=== PATIENT | male | born 1945 | race Caucasian/White ===

== ENCOUNTER → 2016-07-17 | Outpatient (CLI) | payer OTHER, MEDICARE ==
[~2016-07-17] MED LIST: LEVO125T4 PO; MULT-506 PO; OXYC5TAB PO; SIMV20TA2 PO
[2016-07-17 12:24] LABS: BASO % 0.1 %; BASO ABS # 0.01 K/uL (0-0.2); COMPLETE YES; EOS % 0.9 %; HEMATOCRIT 45.4 % (42-52); IG% 0.3 %; LYMPH % 19.7 %; LYMPH ABS # 1.36 K/uL (1.2-3.4); MEAN CELL VOLUME 88.7 fL (80-100); MEAN CORPUSCULAR HEMOGLOBIN 31.3 pg (25-34); MEAN CORPUSCULAR HGB CONC 35.2 g/dl (32-36); MEAN PLATELET VOLUME 9.9 fL (7.4-10.4); MONO % 6.9 %; NEUT % 72.1 %; PLATELET COUNT 238 K/uL (130-400); RED BLOOD COUNT 5.12 M/uL (4.7-6.1); WHITE BLOOD COUNT 6.91 K/uL (4.8-10.8)
[2016-07-17 12:47] LABS: ALKALINE PHOSPHATASE 97 U/L (45-117); ALT/SGPT 38 U/L (12-78); AST/SGOT 20 U/L (15-37); BLOOD UREA NITROGEN 14 mg/dl (7-18); BUN/CREATININE RATIO 11.6 (10-20); CALCIUM 8.8 mg/dl (8.5-10.1); CARBON DIOXIDE 26 mmol/L (21-32); CHLORIDE 104 mmol/L (98-107); CHOLESTEROL 181 mg/dl (0-200); GLUCOSE 95 mg/dl (70-99); POTASSIUM 3.9 mmol/L (3.5-5.1); SODIUM 140 mmol/L (136-145)
[2016-07-17 12:48] LABS: ALB/GLOB RATIO 1.3 (0.9-2); CHOLESTEROL/HDL RATIO 2.8; HDL CHOLESTEROL 65 mg/dl; LDL CHOLESTEROL CALCULATED 95 mg/dl; THYROID STIMULATING HORMONE 0.638 uIu/ml (0.300-4.500); TRIGLYCERIDES 103 mg/dl (0-150); VERY LOW DENSITY LIPOPROT CALC 21 mg/dl
== END | disposition home or self-care (01) ==
LOC: C.LABBFT 09:47
PROVIDERS: ATTEND Internal Medicine
DX: E03.9 Hypothyroidism, unspecified (principal); E78.00 Pure hypercholesterolemia, unspecified

== ENCOUNTER → 2017-03-07 | Day surgery (SDC) | payer OTHER, MEDICARE ==
[2017-02-26 10:42] VITALS: Ht 179.1 cm; Wt 99.1 kg
[~2017-03-07] VITALS: Ht 179.1 cm; Wt 99.1 kg
[~2017-03-07] MED LIST changes: +LIDOCAINE HCL 2% 2 ML VIAL (20MG/ML) ONE; -OXYC5TAB PO; +PROPOFOL IV EMULSION 10 MG/ML 20 ML VIAL IV ONE; +SODIUM CHLORIDE 0.9% 500ML 500 ML IV ONE
[2017-03-07 09:19] VITALS: TEMP 36.5
--- NOTE | 2017-03-07 09:31 | Endo History and Physical ---
History & Physical Date of Service: Mar 07, 2017. Chief Complaint: f/u periananl abscess Referring Physician: Dr. Chase Newell History of Present Illness 71 yo CM who presents for colonoscopy secondary to perianal abscess. Past Medical History High Cholesterol, Thyroid Disease Past Surgical History Hx Cardiac Surgery: No Hx Internal Defibrillator: No Hx Pacemaker: No Hx Abdominal Surgery: Yes (HERNIA REPAIR) Hx of Implantable Prosthesis: No Hx Post-Op Nausea and Vomiting: No Hx Cancer Surgery: No Hx Thoracic Surgery: No Hx Orthopedic: Yes (LT HAND FINGER SURGERY) Hx Urinary Tract Surgery: No Family History None Social History Smoking Status: Former Smoker Hx Substance Use: No Hx Alcohol Use: No Allergies Coded Allergies: No Known Allergies (Verified , 03/07/17) Current Medications Reported Home Medications Medications Dose Route/Sig Max Daily Dose Days Date Category Multivitamin (Multivitamins) Tab 1 Tab PO QPM 02/26/17 Reported Levothyroxine Sodium 125 Mcg Tab 125 Mcg PO QAM 09/19/14 Reported Zocor (Simvastatin) 20 Mg Tab 20 Mg PO HS 09/19/14 Reported Vital Signs Weight (Kilograms): 99.09 Height (Feet): 5 Height (Inches): 10.5 Date Time Temp Pulse Resp B/P (MAP) Pulse Ox O2 Delivery O2 Flow Rate FiO2 03/07/17 09:19 36.5 77 20 156/81 (106) 97 Room Air Physical Exam General Appearance: WD/WN, no apparent distress Respiratory/Chest: Auscultation: breath sounds normal Cardiovascular: Heart Auscultation: RRR Abdomen: Bowel Sounds: normal Inspection & Palpation: soft, non-distended, no tenderness, guarding & rebound Assessment and Plan Assessment: 71 yo CM who presents for colonoscopy secondary to perianal abscess. Plan: Proceed with colonoscopy.
--- NOTE | 2017-03-07 09:58 | Discharge Instructions ---
Endoscopy Patient Instructions Date / Procedure(s) Performed Mar 07, 2017. Colonoscopy Allergy Information Coded Allergies: No Known Allergies (Verified , 03/07/17) Discharge Date / Findings Mar 07, 2017. Colon polyps Diverticulosis Internal hemorrhoids Medication Instructions Stopped Medication(s): stopped MVI Sunday OK to resume all medications today as prescribed Reported Home Medications Medications Dose Route/Sig Max Daily Dose Days Date Category Multivitamin (Multivitamins) Tab 1 Tab PO QPM 02/26/17 Reported Levothyroxine Sodium 125 Mcg Tab 125 Mcg PO QAM 09/19/14 Reported Zocor (Simvastatin) 20 Mg Tab 20 Mg PO HS 09/19/14 Reported Provider Instructions Activity Restrictions - No exercising or heavy lifting for 24 hours. - Do not drink alcohol the day of the procedure. - Do not drive a car or operate machinery until the day after the procedure. - Do not make any important decisions or sign important papers in 24 hours after the procedure. Following Day: - Return to full activity which may include returning to work/school. Diet Start your diet with liquids and light foods (jello, soup, juice, toast). Then eat your usual diet if not nauseated. Treatment For Common After Affects For mild abdominal pain, bloating, or excessive gas: - Rest - Eat lightly - Lie on right side Follow-Up Information Follow-up with Dr. Chase Newell as scheduled Anesthesia Information What You Should Know You have had a procedure that required some medicine to reduce anxiety and discomfort. This treatment is called moderate sedation. After receiving the treatment, you may be sleepy, but you will be able to breathe on your own. The effects of the treatment may last for several hours. Follow these instructions along with Activity/Diet recommendations noted above: * Do NOT do anything where dizziness or clumsiness would be dangerous. * Rest quietly at home today, then you can be up and about tomorrow. * Have a responsible person stay with you the rest of today. * You may have had an I.V. today. If so, you may take the dressing off later today. Recommendations Call your doctor if: * Trouble breathing * Continuous vomiting for more than 24 hours * Temperature above 101 degrees * Severe abdominal pain or bloating * Pain not relieved by pain medicine ordered * There is increased drainage or redness from any incision * A large amount of rectal bleeding greater than 2-3 tablespoons. (If you had a polyp/s removed or have hemorrhoids, a small amount of blood - from the rectum is to be expected.) * You have any unanswered questions or concerns. IN THE EVENT OF A SERIOUS EMERGENCY, GO TO THE NEAREST EMERGENCY ROOM Your discharge instructions were prepared by provider To Feliciano. Patient Instructions Signature Page Ray Batista Patient (or Guardian) Signature/Date: I have read and understand the instructions given to me by my caregivers. Caregiver/RN/Doctor Signature/Date: The above-named patient and/or guardian has received patient instructions on this date. + Original Patient Signature Page (only) stays with chart. Please make copy for patient.
--- NOTE | 2017-03-07 10:04 | GI REPORT ---
Procedure Date: 03/07/2017 9:40 AM Procedure: Colonoscopy Indications: Followup of Perianal abscess Medicines: Monitored Anesthesia Care Complications: No immediate complications. Estimated Blood Loss: Estimated blood loss: none. Procedure: Pre-Anesthesia Assessment: - Prior to the procedure, a History and Physical was performed, and patient medications and allergies were reviewed. The patient's tolerance of previous anesthesia was also reviewed. The risks and benefits of the procedure and the sedation options and risks were discussed with the patient. All questions were answered, and informed consent was obtained. Prior Anticoagulants: The patient has taken no previous anticoagulant or antiplatelet agents. ASA Grade Assessment: II - A patient with mild systemic disease. After reviewing the risks and benefits, the patient was deemed in satisfactory condition to undergo the procedure. After I obtained informed consent, the scope was passed under direct vision. Throughout the procedure, the patient's blood pressure, pulse, and oxygen saturations were monitored continuously. The scope was introduced through the anus and advanced to the cecum, identified by appendiceal orifice and ileocecal valve. The colonoscopy was performed without difficulty. The patient tolerated the procedure well. The quality of the bowel preparation was good. The ileocecal valve, appendiceal orifice, and rectum were photographed. Findings: Three sessile polyps were found in the sigmoid colon and in the ascending colon. The polyps were 5 to 7 mm in size. These polyps were removed with a hot snare. Resection and retrieval were complete. Scattered small-mouthed diverticula were found in the entire colon. Non-bleeding internal hemorrhoids were found during retroflexion. The hemorrhoids were small. Impression: - Three 5 to 7 mm polyps in the sigmoid colon and in the ascending colon, removed with a hot snare. Resected and retrieved. - Diverticulosis in the entire examined colon. - Non-bleeding internal hemorrhoids. Recommendation: - Resume previous diet. - Continue present medications. - Await pathology results. - Repeat colonoscopy for surveillance based on pathology results. - Return to primary care physician as previously scheduled. To Feliciano DO 03/07/2017 10:03:12 AM This report has been signed electronically. Note Initiated On: 03/07/2017 9:40 AM I attest to the content of the Intraoperative Record and orders documented therein, exceptions below
--- NOTE | 2017-03-07 10:27 | Anesthesiology Progress Note ---
Anesthesia Post Op Note Date & Time Mar 07, 2017 at 10:27 Vital Signs Pain Intensity: 0 Vital Signs Past 12 Hours Date Time Temp Pulse Resp B/P (MAP) Pulse Ox O2 Delivery O2 Flow Rate FiO2 03/07/17 10:15 72 18 144/86 (105) 96 Room Air 03/07/17 10:00 70 18 116/77 (90) 97 Room Air 03/07/17 09:19 36.5 77 20 156/81 (106) 97 Room Air Notes Mental Status: alert / awake / arousable, participated in evaluation Pt Amnestic to Procedure: Yes Nausea / Vomiting: adequately controlled Pain: adequately controlled Airway Patency, RR, SpO2: stable & adequate BP & HR: stable & adequate Hydration State: stable & adequate Anesthetic Complications: no major complications apparent
[2017-03-07 10:30] VITALS: BP 135/85; PULSE 66; O2SAT 98
== END | disposition home or self-care (01) ==
LOC: C.GI 08:54
PROVIDERS: ATTEND Internal Medicine
DX: K61.0 Anal abscess (principal); D12.2 Benign neoplasm of ascending colon; D12.5 Benign neoplasm of sigmoid colon; E05.00 Thyrotoxicosis with diffuse goiter without thyrotoxic crisis or storm; K64.8 Other hemorrhoids; K57.30 Diverticulosis of large intestine without perforation or abscess without bleeding; Z87.891 Personal history of nicotine dependence

== ENCOUNTER → 2017-04-23 | Outpatient (CLI) | payer OTHER, MEDICARE ==
[~2017-04-23] MED LIST changes: -LIDOCAINE HCL 2% 2 ML VIAL (20MG/ML) ONE; -PROPOFOL IV EMULSION 10 MG/ML 20 ML VIAL IV ONE; -SODIUM CHLORIDE 0.9% 500ML 500 ML IV ONE
[2017-04-23 12:43] LABS: % FREE PSA 26.2 %; FREE PSA 1.3 ng/ml; PROSTATE SPECIFIC ANTIGEN 4.97 ng/ml (0.000-4.000)
== END | disposition home or self-care (01) ==
LOC: C.LABBFT 09:33
PROVIDERS: ATTEND Urology
DX: R97.20 Elevated prostate specific antigen [PSA] (principal)

== ENCOUNTER → 2017-06-15 | Outpatient (CLI) | payer OTHER, MEDICARE ==
[~2017-06-15] MED LIST changes: -LEVO125T4 PO; +LEVO125T5 PO; +OPTIRAY 320 IV PRN
--- NOTE | 2017-06-15 14:15 | DIAGNOSTIC IMAGING REPORT ---
ABD/PELVIS IV AND ORAL CONT CT DOSE: 833.56 mGy.cm HISTORY: Flank pain R10.30 Groin painZ87.19 History of right inguinal hernia TECHNIQUE: Multiaxial CT images of the abdomen and pelvis were performed following the use of intravenous and oral contrast. A dose lowering technique was utilized adhering to the principles of ALARA. COMPARISON STUDY: 06/13/2016 FINDINGS: Minimal basilar interstitial change considered nonspecific. Multiple small hepatic cysts. Gallbladder is negative for distention. Pancreas is unremarkable. 3 mm nonobstructing mid pole right renal calcification. No evidence for hydronephrosis or obstructing urinary tract calculus. The bowel pattern is nonobstructive. Small fat-containing left inguinal hernia. No evidence of bowel containment or respiration. Moderate prostate enlargement. IMPRESSION: 1. Fat-containing left inguinal hernia considered nonobstructive. 2. Prostate enlargement. 3. Nonobstructive bowel pattern. 4. Several small hepatic cysts. The above report was generated using voice recognition software. It may contain grammatical, syntax or spelling errors. Electronically signed by: Chato Avitia M.D. 06/15/2017 2:14 PM Dictated Date/Time: 06/15/2017 2:11 PM
== END | disposition home or self-care (01) ==
LOC: C.CTS 12:59
PROVIDERS: ATTEND Surgery
DX: R10.30 Lower abdominal pain, unspecified (principal); Z87.19 Personal history of other diseases of the digestive system; K40.90 Unilateral inguinal hernia, without obstruction or gangrene, not specified as recurrent; N40.0 Benign prostatic hyperplasia without lower urinary tract symptoms; K76.89 Other specified diseases of liver

== ENCOUNTER 2017-06-25 10:27 | Day surgery (SDC) | payer OTHER, MEDICARE ==
[2017-06-21 10:10] VITALS: BMI 31.0
--- NOTE | 2017-06-21 10:43 | PAT Medication Instructions ---
Service Date Jun 21, 2017. Current Home Medication List Sedqych-Qtbeiivufquqa-Udnrrnyk (Excedrin Migraine), 1 TAB PO PRN Levothyroxine Sodium (Levothyroxine Sodium), 125 MCG PO QAM Multivitamin (Multivitamin), 1 TAB PO QPM Simvastatin (Zocor), 20 MG PO HS [Nasal [place]], 2 SPRAYS INTNAS PRN Medication Instructions For Your Scheduled Surgery - Hold the following medications the morning of surgery: Vcerynn-Nrthnmfzmgtob-Vwwiqfvq (Excedrin Migraine), 1 TAB PO PRN - Take the following medications the morning of surgery with a sip of water: Levothyroxine Sodium (Levothyroxine Sodium), 125 MCG PO QAM [Nasal [place]], 2 SPRAYS INTNAS PRN - Take the following medications as scheduled the night before surgery: Simvastatin (Zocor), 20 MG PO HS Multivitamin (Multivitamin), 1 TAB PO QPM [Nasal [place]], 2 SPRAYS INTNAS PRN (if needed) If you have any questions please call us at [phone] or [phone] or [phone]
--- NOTE | 2017-06-21 11:30 | DIAGNOSTIC IMAGING REPORT ---
CHEST 2 VIEWS ROUTINE CLINICAL HISTORY: PAT preoperative evaluation COMPARISON STUDY: No previous studies for comparison. FINDINGS: The bones soft tissues and hemidiaphragms are normal. The cardiomediastinal silhouette is normal. The lungs are clear. The pulmonary vasculature is normal. IMPRESSION: Negative chest. The above report was generated using voice recognition software. It may contain grammatical, syntax or spelling errors. Electronically signed by: Chato Avitia M.D. 06/21/2017 11:29 AM Dictated Date/Time: 06/21/2017 11:29 AM
[2017-06-21 12:27] LABS: BASO % 0.3 %; BASO ABS # 0.02 K/uL (0-0.2); COMPLETE YES; EOS % 1.6 %; HEMATOCRIT 45.5 % (42-52); IG% 0.2 %; LYMPH % 25.4 %; LYMPH ABS # 1.59 K/uL (1.2-3.4); MEAN CELL VOLUME 90.3 fL (80-100); MEAN CORPUSCULAR HEMOGLOBIN 31.5 pg (25-34); MEAN CORPUSCULAR HGB CONC 34.9 g/dl (32-36); MEAN PLATELET VOLUME 10.1 fL (7.4-10.4); NEUT % 62.5 %; PLATELET COUNT 227 K/uL (130-400); RED BLOOD COUNT 5.04 M/uL (4.7-6.1); WHITE BLOOD COUNT 6.27 K/uL (4.8-10.8)
[2017-06-21 12:35] LABS: BUN/CREATININE RATIO 14.3 (10-20); CALCIUM 8.8 mg/dl (8.5-10.1); CREATININE 1.08 mg/dl (0.60-1.40); POTASSIUM 4.4 mmol/L (3.5-5.1)
[~2017-06-25] VITALS: Ht 177.8 cm; Wt 99.4 kg
[~2017-06-25 10:27] MED LIST changes: +ASPI-390 PO; +ATROPINE SULFATE 0.1 MG/ML 5ML SYR IV PRN; +CEFAZOLIN 2000 MG/60 ML D5W 60 ML IV SCH; +CEFAZOLIN 2000MG IV PUSH 10 ML IV SCH; +EpHEDrine SULFATE INJ 50 MG/ML AMP IV PRN; +FENTANYL CITRATE INJ 50 MCG/1 ML 2 ML VIAL IV PRN; +LACTATED RINGER'S 1000ML 1,000 ML IV SCH; +NASAL SPRAY INTNAS; +ONDANSETRON INJ 2 MG/ML 2 ML VIAL IV PRN; -OPTIRAY 320 IV PRN
[2017-06-25] MEDS ORDERED: ROCURONIUM BROMIDE 10 MG/ML 5 ML VIAL IV ONE (11:04)
[2017-06-25] MEDS ORDERED: LIDOCAINE HCL 2% 2 ML VIAL (20MG/ML) ONE (11:04)
[2017-06-25] MEDS ORDERED: PROPOFOL IV EMULSION 10 MG/ML 20 ML VIAL IV ONE (11:04)
[2017-06-25] MEDS ORDERED: FENTANYL CITRATE INJ 50 MCG/1 ML 2 ML VIAL ONE ×4 (11:05→14:23)
[2017-06-25] MEDS ORDERED: MIDAZOLAM HCL 1 MG/ML 2ML VIAL ONE (11:05)
[2017-06-25 11:06] VITALS: BP 177/81; PULSE 75; TEMP 36.6; O2SAT 97; Ht 177.8 cm; Wt 99.4 kg
[2017-06-25] MEDS ORDERED: GLYCOPYRROLATE INJ 0.2 MG/ML VIAL ONE ×2 (11:09→11:29)
[2017-06-25] MEDS ORDERED: NEOSTIGMINE METHYLSULFATE 5 MG/5 ML SYR ONE (11:09)
[2017-06-25] MEDS ORDERED: KETOROLAC TROMETHAMINE 30 MG/ML VIAL ONE (11:09)
[2017-06-25] MEDS ORDERED: BUPIVACAINE 0.5 % 5 MG/1 ML MPF 30ML VIAL ONE (11:58)
--- NOTE | 2017-06-25 11:58 | History & Physical Bridge Note ---
H&P Re-Evaluation Bridge Note: I have examined the patient, reviewed the History & Physical and in the interval since the performance of the History & Physical I have noted the following changes of clinical significance: No changes noted
[2017-06-25] MEDS ORDERED: EpHEDrine SULFATE 50MG/5ML SYR ONE (12:42)
[2017-06-25] MEDS ORDERED: LABETALOL HCL IV 5 MG/ML 20ML IV ONE (13:08)
--- NOTE | 2017-06-25 14:01 | [facility] Post Operative Brief Note ---
Immediate Operative Summary Operative Date Jun 25, 2017. Pre-Operative Diagnosis Left and Right Inguinal Hernias Post-Operative Diagnosis Left and Right Inguinal Hernias Procedure(s) Performed Laparoscopic Left and Right Inguinal Hernia Repair with Mesh Surgeon Dr. Yadiel Randall [employer] Dean Surgeon(s) Fabián Mcmullen PA-C Estimated Blood Loss 2CC Findings left indirect inguinal hernia with cord lipoma; right with apparent recurrent direct inguinal hernia. Specimens A.) Right Lipoma of the Cord Drains None Anesthesia GETA Complication(s) None Disposition Recovery Room / PACU
--- NOTE | 2017-06-25 14:07 | [facility] Operative Report ---
Operative Report Operative Date Jun 25, 2017. Pre-Operative Diagnosis Left and Right Inguinal Hernias Post-Operative Diagnosis Left indirect inguinal hernia; Right recurrent direct inguinal hernia Procedure(s) Performed Laparoscopic bilateral (TEP) inguinal hernia repair with mesh (right recurrent) Surgeon Dr. Yadiel Randall Coloring Checker Surgeon(s) Fabián Mcmullen PA-C Estimated Blood Loss 2CC Findings left indirect inguinal hernia with cord lipoma; right with apparent recurrent direct inguinal hernia. Specimens A.) Right Lipoma of the Cord Drains None Anesthesia GETA Complication(s) None Disposition Recovery Room / PACU Indications 71-year-old male with right groin pain found to have left inguinal hernia, concern for recurrence on the right but CT imaging negative. Plan for laparoscopic left inguinal hernia repair, possible right. The risks of the procedure were discussed, all questions were answered, and the patient agreed to proceed with surgery as planned. Description of Procedure The patient was properly identified, consented, and taken to the operating room where he was placed in the supine position. General endotracheal anesthesia was induced. SCDs and a safety belt were placed. A tipton catheter was placed. Preoperative antibiotics were administered. The patient's groins and abdomen were prepped and draped in the standard sterile fashion. Surgical timeout was performed and all parties were in agreement that this was the correct patient and procedure to be performed and we continued as planned. A transverse infraumbilical incision was made to the right of midline with electrocautery and deepened down to the fascia with blunt dissection. A transverse incision was made in the anterior rectus sheath on the right. The rectus muscle was pulled laterally exposing the posterior rectus sheath. A large Marie was used to bluntly dissect the preperitoneal space down to the pubic symphysis. This was then replaced with a laparoscopic preperitoneal dissection balloon, which was inflated under direct visualization and held in place for approximately 30 seconds. This was then removed and the preperitoneal space was insufflated with carbon dioxide which the patient tolerated without incident. Two 5 mm ports were then placed in the midline. Dissection started on the left, beginning laterally at the anterior superior iliac spine. Sudheer's ligament was then dissected medially. The cord structures were circumferentially dissected. A small indirect inguinal hernia along with a moderate size cord lipoma were noted. They were dissected away from the cord structures. The contralateral side was then dissected in a similar manner. There was significant scarring from his prior open inguinal hernia repair. Tears in the peritoneum were repaired with a 5 mm clip product builder. The peritoneum was scarred right to the entrance of the internal ring was dissected away, but it was unclear whether this represented a recurrence. There was a small direct defect, and some fat was reduced. Progrip mesh was placed bilaterally and covered the direct, indirect, and femoral spaces. The mesh was held in place, the ports were removed, and the space was allowed to collapse. The anterior rectus sheath fascia was closed with 0 Vicryl suture. The skin of all port sites were closed with 4-0 Monocryl subcuticular suture, and Dermabond was placed over the incisions. The patient was extubated in the operating room and taken to the PACU for recovery without apparent incident. Any air in the scrotum was reduced, and the testicles were confirmed to be in the scrotum. There is no evidence of bladder air within the Tipton catheter collection bag, and the catheter was removed. All sponge, instrument, and needle counts were correct at the conclusion of the procedure. The patient tolerated the procedure well. I attest to the content of the Intraoperative Record and any orders documented therein. Any exceptions are noted below.
[2017-06-25] MEDS ORDERED: OXYC-57 PO (14:11)
--- NOTE | 2017-06-25 14:13 | Discharge Instructions ---
Discharge Instructions Date of Service Jun 25, 2017. Visit Reason for Visit: Left Inguinal Hernia Discharge Discharge Diagnosis / Problem: laparoscopic repair right & left hernias Discharge Goals Goal(s): Decrease discomfort Activity Recommendations Activity Limitations: as noted below Lifting Limitations: no more than 10 pounds Shower/Bathe: no limitations (ok to shower) Driving or Machine Use: 1 week Anesthesia . Post Anesthesia Instructions: If you have had General Anesthesia or IV Sedation: * Do not drive today. * Resume driving when surgeon permits. * Do not make important decisions or sign legal documents today. * Call surgeon for: 1. Temperature elevations greater than 101 degrees F. 2. Uncontrollable pain. 3. Excessive bleeding. 4. Persistent nausea and vomiting. 5. Medication intolerance (nausea, vomiting or rash). * For nausea and vomiting use only clear liquids such as: tea, soda, bouillon until nausea subsides, then gradually increase diet as tolerated. * If you have any concerns or questions, call your surgeon's office. If physician is unavailable and it is an emergency, call 911 or go to the nearest emergency room. . Instructions / Follow-Up Instructions / Follow-Up Dr. Randall in 1-2 weeks as planned, call [phone] for any questions or if you do not already have an appt Diet Recommendations Recommended Home Diet: no limitations Procedures Procedures Performed: Laparoscopic Left and Right Inguinal Hernia Repair with Mesh Pending Studies Studies pending at discharge: no Medical Emergencies . Who to Call and When: Medical Emergencies: If at any time you feel your situation is an emergency, please call 911 immediately. . Non-Emergent Contact Non-Emergency issues call your: Surgeon Call Non-Emergent contact if: you have a fever, temperature is above 101.5, your pain is not controlled, you have any medication questions . . "Provider Documentation" section prepared by Ovi Mcmuleln. .
[2017-06-25] MEDS ORDERED: LACTATED RINGER'S 1000ML 1,000 ML IV SCH (14:14)
[2017-06-25] MEDS ORDERED: MoRPHine SULFATE 4 MG/ML 1 ML CARP\\VIAL IV PRN (14:15)
[2017-06-25] MEDS ORDERED: ONDANSETRON INJ 2 MG/ML 2 ML VIAL IV PRN (14:15)
[2017-06-25] MEDS ORDERED: OXYCODONE/ACETAMINOPHEN 5-325 TAB PO PRN (14:15)
--- NOTE | 2017-06-25 14:42 | Anesthesiology Progress Note ---
Anesthesia Post Op Note Date & Time Jun 25, 2017 at 14:41 Vital Signs Pain Intensity: 6 Vital Signs Past 12 Hours Date Time Temp Pulse Resp B/P (MAP) Pulse Ox O2 Delivery O2 Flow Rate FiO2 06/25/17 14:30 73 16 123/79 97 Oxymask 10 06/25/17 14:20 66 16 135/82 97 Oxymask 10 06/25/17 14:10 36.9 74 16 143/94 96 Oxymask 10 06/25/17 11:06 36.6 75 16 177/81 (113) 97 Room Air Notes Mental Status: alert / awake / arousable, participated in evaluation Pt Amnestic to Procedure: Yes Nausea / Vomiting: adequately controlled Pain: adequately controlled Airway Patency, RR, SpO2: stable & adequate BP & HR: stable & adequate Hydration State: stable & adequate Anesthetic Complications: no major complications apparent
[2017-06-25 15:07] VITALS: BP 119/69; PULSE 85; TEMP 36.7; O2SAT 94
[2017-06-25 15:48] VITALS: BP 131/74; PULSE 93; TEMP 36.7; O2SAT 92
== END 2017-06-25 16:08 | disposition home or self-care (01) ==
LOC: C.ACU 10:27
PROVIDERS: ATTEND Surgery
DX: K40.91 Unilateral inguinal hernia, without obstruction or gangrene, recurrent (principal); K40.90 Unilateral inguinal hernia, without obstruction or gangrene, not specified as recurrent; N40.1 Benign prostatic hyperplasia with lower urinary tract symptoms; N13.8 Other obstructive and reflux uropathy; E78.00 Pure hypercholesterolemia, unspecified; E03.9 Hypothyroidism, unspecified; Z87.891 Personal history of nicotine dependence; Z79.899 Other long term (current) drug therapy; E66.9 Obesity, unspecified; Z68.31 Body mass index [BMI] 31.0-31.9, adult

== ENCOUNTER → 2017-07-19 | Outpatient (CLI) | payer OTHER, MEDICARE ==
[~2017-07-19] MED LIST changes: -ASPI-390 PO; -ATROPINE SULFATE 0.1 MG/ML 5ML SYR IV PRN; -CEFAZOLIN 2000 MG/60 ML D5W 60 ML IV SCH; -CEFAZOLIN 2000MG IV PUSH 10 ML IV SCH; -EpHEDrine SULFATE INJ 50 MG/ML AMP IV PRN; -FENTANYL CITRATE INJ 50 MCG/1 ML 2 ML VIAL IV PRN; -LACTATED RINGER'S 1000ML 1,000 ML IV SCH; -ONDANSETRON INJ 2 MG/ML 2 ML VIAL IV PRN; +OXYC-57 PO
[2017-07-19 12:40] LABS: BASO % 0.3 %; BASO ABS # 0.02 K/uL (0-0.2); EOS % 3.3 %; EOS ABS # 0.25 K/uL (0-0.5); IG# 0.03 K/uL (0.00-0.02); LYMPH % 20.2 %; LYMPH ABS # 1.54 K/uL (1.2-3.4); MEAN CELL VOLUME 90.9 fL (80-100); MEAN CORPUSCULAR HEMOGLOBIN 31.6 pg (25-34); MEAN CORPUSCULAR HGB CONC 34.8 g/dl (32-36); MEAN PLATELET VOLUME 9.7 fL (7.4-10.4); MONO % 7.6 %; MONO ABS # 0.58 K/uL (0.11-0.59); NEUT % 68.2 %; PLATELET COUNT 317 K/uL (130-400); RED CELL DISTRIBUTION WIDTH CV 12.8 % (11.5-14.5); WHITE BLOOD COUNT 7.62 K/uL (4.8-10.8)
[2017-07-19 13:10] LABS: ALBUMIN 3.7 gm/dl (3.4-5.0); ALT/SGPT 34 U/L (12-78); BLOOD UREA NITROGEN 13 mg/dl (7-18); CALCIUM 8.9 mg/dl (8.5-10.1); CARBON DIOXIDE 29 mmol/L (21-32); CHOLESTEROL 165 mg/dl (0-200); CREATININE 1.04 mg/dl (0.60-1.40); GLUCOSE 69 mg/dl (70-99); SODIUM 139 mmol/L (136-145)
[2017-07-19 13:19] LABS: ALKALINE PHOSPHATASE 104 U/L (45-117); AST/SGOT 18 U/L (15-37); LDL CHOLESTEROL CALCULATED 86 mg/dl; TOTAL PROTEIN 7.2 gm/dl (6.4-8.2)
== END | disposition home or self-care (01) ==
LOC: C.LABBFT 09:15
PROVIDERS: ATTEND Internal Medicine
DX: E78.00 Pure hypercholesterolemia, unspecified (principal); E03.9 Hypothyroidism, unspecified

== ENCOUNTER 2019-08-01 07:27 | Inpatient (IN) ==
[2019-08-01 08:11] LABS: Basophils # (auto) 0.01 K/uL (0-0.2); Basophils % (auto) 0.1 %; Eosinophils # (auto) 0.04 K/uL (0-0.5); Eosinophils % (auto) 0.5 %; Hematocrit (blood only) 45.5 % (42-52); Hemoglobin 16.1 g/dL (14.0-18.0); Immature Granulocytes # (auto) 0.02 K/uL (0.00-0.02); Immature Granulocytes % (auto) 0.2 %; Lymphocytes # (auto) 1.13 K/uL (1.2-3.4); Lymphocytes % (auto) 13.4 %; Mean Corpuscular Hemoglobin 31.9 pg (25-34); Mean Corpuscular Hgb Conc 35.4 g/dL (32-36); Mean Corpuscular Volume 90.3 fL (80-100); Mean Platelet Volume 9.5 fL (7.4-10.4); Monocytes # (auto) 0.91 K/uL (0.11-0.59); Monocytes % (auto) 10.8 %; Neutrophils # (auto) 6.33 K/uL (1.4-6.5); Platelet Count 230 K/uL (130-400); RDW Coefficient of Variation 12.8 % (11.5-14.5); RDW Standard Deviation 42.1 fL (36.4-46.3); Red Blood Count 5.04 M/uL (4.7-6.1); White Blood Count 8.44 K/uL (4.8-10.8)
[2019-08-01 08:27] LABS: Albumin Level 3.8 gm/dl (3.4-5.0); BUN Creatinine Ratio 7.9 (10-20); Calcium 9.1 mg/dl (8.5-10.1); Creatinine Clr Calc Pharmacy 39.8 ml/min; Est GFR (African American) 40.1; Est GFR (Non-African American) 34.6; Potassium 4.4 mmol/L (3.5-5.1)
[2019-08-01 08:30] LABS: Bilirubin,Total 0.5 mg/dl (0.2-1); Globulin 3.6 gm/dl (2.5-4.0); Total Protein 7.4 gm/dl (6.4-8.2)
--- NOTE | 2019-08-01 08:34 | Emergency Department Note ---
Entered by Wilber Hudson acting as a scribe for History of Present Illness General Chief complaint: Flank Pain Stated complaint: PAIN ON THE RIGHT SIDE Time Seen by Provider: 08/01/19 07:34 Source: patient Limitations: no limitations History of Present Illness Onset (ago): day(s) 4 Location: abdomen Pain Consistency: + constant Maximum Pain Intensity: 8 Quality: + constant Associated symptoms: + other (loose stools); no nausea/vomiting The patient is a 73 year old male who presents to the Emergency Room with complaints of constant and dull right-sided flank pain starting 4 days ago. The patient states he was prescribed 5 mg oxycodone. He states he had an anal fistulotomy 8 days ago and notes this is his second time getting it within the past 3 months. He states he started taking milk of magnesia 3 days ago and states he has been having loose stools since. The patient denies having nausea or vomiting. Home Medications Home Medications Medication Instructions Recorded Confirmed Type simvastatin 20 mg tablet 20 mg PO QPM #90 tab 06/12/19 08/01/19 Rx levothyroxine 125 mcg PO QAM 08/01/19 08/01/19 History oxycodone 5 mg PO Q4H PRN 08/01/19 08/01/19 History Allergies Allergy/AdvReac Type Severity Reaction Status Date / Time No Known Allergies Allergy Verified 08/01/19 08:48 Past Med/Surg History Medical History Abscess of anal and rectal regions Hyperlipemia Thumb injury Surgical History History of hernia surgery History of hernia surgery Family History Father Stroke Hypertension Social History Preferred Language: Angolan Communication Ability: Effective Model Technician Required: No Beliefs That Will Affect Care: Church Church Beliefs: Jain marital status: Current Living Situation: Spouse current occupational status: retired Other Information That Helps Us Care for You: No Feels Safe at Home: No Is there a partner from a previous relationship who is making you feel unsafe now?: No Any Concerns about Your Family Situation: No Would You Like to Speak to Someone About Your Situation: No Safety Concerns: Feels Safe At This Time Smoking Status: Former smoker Do You Dip or Chew Tobacco: No ; Smoking End Date: 20 years ago. ; Second Hand Exposure: No ; Tobacco Cessation Education Requested by Patient: No Hx Alcohol Use: Yes Alcohol type: beer and wine Hx Substance Use: No Review of Systems See HPI for pertinent positives & negatives. and A total of 10 systems reviewed and were otherwise negative Physical Exam Vital Signs Vital Signs - 24 hr 08/01/19 07:29 08/01/19 08:08 08/01/19 08:09 Temperature 36.5 C Temperature Source Oral Pulse Rate 85 Pulse Rate [Apical] 74 Pulse Rhythm [Apical] Regular Pulse Strength [Apical] Normal Respiratory Rate 16 16 Respiratory Effort / Characteristics Non-Labored Spontaneous Non-Labored Spontaneous Respiratory Depth Normal Normal Respiratory Pattern Regular Regular Blood Pressure 164/84 H Blood Pressure [Left Arm] 160/92 H Blood Pressure Mean 110 Blood Pressure Mean [Left Arm] 114 Blood Pressure Position Sitting Blood Pressure Position [Left Arm] Sitting Pulse Oximetry 96 95 95 Oxygen Delivery Method Room Air Room Air Room Air Sepsis Recent Fever Within 48 Hours No Sepsis New/Unexplained Change in Mental Status No Sepsis Action Taken by Nursing No Action Required 08/01/19 08:42 08/01/19 09:40 Temperature Temperature Source Pulse Rate Pulse Rate [Apical] 73 71 Pulse Rhythm [Apical] Regular Regular Pulse Strength [Apical] Normal Normal Respiratory Rate 18 18 Respiratory Effort / Characteristics Non-Labored Non-Labored Spontaneous Respiratory Depth Normal Normal Respiratory Pattern Blood Pressure Blood Pressure [Left Arm] 183/115 H 169/90 H Blood Pressure Mean Blood Pressure Mean [Left Arm] 137 116 Blood Pressure Position Blood Pressure Position [Left Arm] Sitting Sitting Pulse Oximetry 96 97 Oxygen Delivery Method Room Air Room Air Sepsis Recent Fever Within 48 Hours Sepsis New/Unexplained Change in Mental Status Sepsis Action Taken by Nursing GENERAL: Patient is awake alert in no acute distress patient is resting comfortably and showing no signs of anxiety EYES: The conjunctivae are clear. The pupils are round and reactive. EARS, NOSE, MOUTH AND THROAT: The nose is without any evidence of any deformity. Mucous membranes are moist. Tongue is midline. NECK: The neck is nontender and supple. RESPIRATORY: Normal respiratory effort is noted there is no evidence of wheezing rhonchi or rales CARDIOVASCULAR: Regular rate and rhythm noted there no murmurs rubs or gallops normal S1 normal S2. GASTROINTESTINAL: The abdomen is mildly distended. There is right-sided tenderness to palpation but no guarding or rigidity. Tenderness appears to be mostly in the mid right abdomen. MUSCULOSKELETAL/EXTREMITIES: There is no evidence of gross deformity full range of motion is noted in the hips and shoulders. SKIN: There is no obvious evidence of any rash. Trace pedal edema was noted bilaterally. NEUROLOGIC: Patient is awake alert and oriented x3. Course Course 0801: The patient was evaluated in room B2, and a complete history and physical examination were performed along with my resident - Dr. Moran. 0953: I spoke with Addie Zaman - Nurse Practitioner Urology. She recommends admitting the patient to medicine. 0958: I discussed the patient's case with Dr. Perrin - [facility]ist. She will evaluate the patient for further management. Administered Medications Sodium Chloride (Nss 1000ml) 1,000 mls @ 100 mls/hr IV .Q10H SJ Stop: 08/31/19 12:06 Last Admin: 08/01/19 13:16 Dose: 100 mls/hr Documented by: [id number] Polyethylene Glycol (Miralax Powder Packet) 17 gm PO BID SJ Stop: 08/31/19 12:06 Last Admin: 08/01/19 13:25 Dose: 17 gm Documented by: [id number] Discontinued Medications Fentanyl Citrate (Fentanyl Citrate) 75 mcg IV NOW STA Stop: 08/01/19 08:53 Last Admin: 08/01/19 09:08 Dose: 75 mcg Documented by: [id number] Ceftriaxone Sodium (Rocephin) 2,000 mg in 70 mls @ 140 mls/hr IV NOW STA Stop: 08/01/19 09:22 Last Infusion: 08/01/19 10:06 Dose: 0 mls/hr Documented by: [id number] Admin: 08/01/19 09:08 Dose: 140 mls/hr Documented by: [id number] Sodium Chloride (Nss 1000ml) 1,000 mls @ 999 mls/hr IV .Q1H1M SJ Stop: 08/01/19 10:15 Last Infusion: 08/01/19 11:18 Dose: 0 mls/hr Documented by: [id number] Admin: 08/01/19 09:30 Dose: 999 mls/hr Documented by: [id number] Ioversol (Optiray 320 100ml) 93 ml IV ONCE PRN PRN Reason: Interaction Checking Stop: 08/05/19 08:41 Last Admin: 08/01/19 08:43 Dose: 93 ml Documented by: [id number] Ondansetron HCl (Zofran Odt) 4 mg PO NOW STA Stop: 08/01/19 08:54 Last Admin: 08/01/19 09:08 Dose: 4 mg Documented by: [id number] Medical Decision Making Differential Diagnosis Differential diagnoses includes but is not limited to gastritis, peptic ulcer disease, GERD, gallbladder disease, pancreatitis, small bowel obstruction, acute coronary syndrome, pericarditis, ischemic bowel, irritable bowel disease, irritable bowel syndrome, appendicitis, diverticulitis, malignancy, hernia, urinary tract infection, torsion, perforation, trauma, infectious. Medical Records Attestation: I reviewed the patient's medical records. Home Medications Current Medication List: was personally reviewed by me Laboratory Data Attestation: I reviewed the patient's lab results. Result diagrams: 08/01/19 08:00 08/01/19 08:00 Lab Results 08/01/19 08/01/19 08/01/19 Range/Units 08:00 08:00 08:00 WBC 8.44 (4.8-10.8) K/uL RBC 5.04 (4.7-6.1) M/uL Hgb 16.1 (14.0-18.0) g/dL Hct 45.5 (42-52) % MCV 90.3 (80-100) fL MCH 31.9 (25-34) pg MCHC 35.4 (32-36) g/dL RDW Std Deviation 42.1 (36.4-46.3) fL RDW Coeff of [place] 12.8 (11.5-14.5) % Plt Count 230 (130-400) K/uL MPV 9.5 (7.4-10.4) fL Immature Gran % (Auto) 0.2 % Neut % (Auto) 75.0 % Lymph % (Auto) 13.4 % Snyder % (Auto) 10.8 % Eos % (Auto) 0.5 % Baso % (Auto) 0.1 % Immature Gran # (Auto) 0.02 (0.00-0.02) K/uL Neut # (Auto) 6.33 (1.4-6.5) K/uL Lymph # (Auto) 1.13 L (1.2-3.4) K/uL Snyder # (Auto) 0.91 H (0.11-0.59) K/uL Eos # (Auto) 0.04 (0-0.5) K/uL Baso # (Auto) 0.01 (0-0.2) K/uL Sodium 139 (136-145) mmol/L Potassium 4.4 (3.5-5.1) mmol/L Chloride 105 (98-107) mmol/L Carbon Dioxide 28 (21-32) mmol/L Anion Gap 6.0 (3-11) BUN 15 (7-18) mg/dl Creatinine 1.86 H (0.6-1.4) mg/dl Est Cr Clr Drug Dosing 39.8 ml/min Est GFR ( Amer) 40.1 Est GFR (Non-Af Amer) 34.6 BUN/Creatinine Ratio 7.9 L (10-20) Glucose 109 H (70-99) mg/dl Estimat Average Glucose 105 mg/dl Hemoglobin A1c 5.3 (4.5-5.6) % Calcium 9.1 (8.5-10.1) mg/dl Total Bilirubin 0.5 (0.2-1) mg/dl AST 11 L (15-37) U/L ALT 22 (12-78) U/L Alkaline Phosphatase 94 (45-117) U/L NT-Pro-B Natriuret Pep (0-900) pg/ml Total Protein 7.4 (6.4-8.2) gm/dl Albumin 3.8 (3.4-5.0) gm/dl Globulin 3.6 (2.5-4.0) gm/dl Albumin/Globulin Ratio 1.0 (0.9-2) Lipase 110 (73-393) U/L Prostate Specific Ag (0-4) ng/ml Urine Color Urine Appearance (Clear) Urine pH (4.5-7.5) Ur Specific [place] (1.000-1.030) Urine Protein (Negative) Urine Glucose (UA) (Negative) Urine Ketones (Negative) Urine Blood (Negative) Urine Nitrite (Negative) Urine Bilirubin (Negative) Urine Urobilinogen (Negative) Ur Leukocyte Esterase (Negative) Urine WBC (Auto) (0-5) /hpf Urine RBC (Auto) (0-4) /hpf U Hyaline Cast (Auto) (0-5) /lpf U Epithel Cells (Auto) (0-5) /lpf Urine Bacteria (Auto) (Negative) 08/01/19 08/01/19 Range/Units 08:00 09:00 WBC (4.8-10.8) K/uL RBC (4.7-6.1) M/uL Hgb (14.0-18.0) g/dL Hct (42-52) % MCV (80-100) fL MCH (25-34) pg MCHC (32-36) g/dL RDW Std Deviation (36.4-46.3) fL RDW Coeff of [place] (11.5-14.5) % Plt Count (130-400) K/uL MPV (7.4-10.4) fL Immature Gran % (Auto) % Neut % (Auto) % Lymph % (Auto) % Snyder % (Auto) % Eos % (Auto) % Baso % (Auto) % Immature Gran # (Auto) (0.00-0.02) K/uL Neut # (Auto) (1.4-6.5) K/uL Lymph # (Auto) (1.2-3.4) K/uL Snyder # (Auto) (0.11-0.59) K/uL Eos # (Auto) (0-0.5) K/uL Baso # (Auto) (0-0.2) K/uL Sodium (136-145) mmol/L Potassium (3.5-5.1) mmol/L Chloride (98-107) mmol/L Carbon Dioxide (21-32) mmol/L Anion Gap (3-11) BUN (7-18) mg/dl Creatinine (0.6-1.4) mg/dl Est Cr Clr Drug Dosing ml/min Est GFR ( Amer) Est GFR (Non-Af Amer) BUN/Creatinine Ratio (10-20) Glucose (70-99) mg/dl Estimat Average Glucose mg/dl Hemoglobin A1c (4.5-5.6) % Calcium (8.5-10.1) mg/dl Total Bilirubin (0.2-1) mg/dl AST (15-37) U/L ALT (12-78) U/L Alkaline Phosphatase (45-117) U/L NT-Pro-B Natriuret Pep 89 (0-900) pg/ml Total Protein (6.4-8.2) gm/dl Albumin (3.4-5.0) gm/dl Globulin (2.5-4.0) gm/dl Albumin/Globulin Ratio (0.9-2) Lipase (73-393) U/L Prostate Specific Ag 8.570 H (0-4) ng/ml Urine Color Yellow Urine Appearance Cloudy A (Clear) Urine pH 7.5 (4.5-7.5) Ur Specific [place] 1.017 (1.000-1.030) Urine Protein Negative (Negative) Urine Glucose (UA) Negative (Negative) Urine Ketones Negative (Negative) Urine Blood 1+ H (Negative) Urine Nitrite Negative (Negative) Urine Bilirubin Negative (Negative) Urine Urobilinogen Negative (Negative) Ur Leukocyte Esterase Negative (Negative) Urine WBC (Auto) 0 (0-5) /hpf Urine RBC (Auto) 0-4 (0-4) /hpf U Hyaline Cast (Auto) 0 (0-5) /lpf U Epithel Cells (Auto) 0-5 (0-5) /lpf Urine Bacteria (Auto) Negative (Negative) Imaging Data Radiologist's Impression: Radiology results as stated below per my review and the radiologist's interpretation: CT abd pelvis IV con only CT DOSE: 653.99 mGy.cm HISTORY: Pain pain abdominal pain after surgery TECHNIQUE: Multiaxial CT images of the abdomen and pelvis were performed following the use of intravenous contrast. A dose lowering technique was utilized adhering to the principles of ALARA. COMPARISON STUDY: 03/05/2019 FINDINGS: Lung bases are clear. Several small hepatic cysts. Gallbladder is negative for distention. Left kidney is normal. Right kidney shows moderate hydronephrosis. There is a 4 mm obstructing calculus right ureteral pelvic junction. Moderate right perinephric infiltrative change. Findings of mild right periureteral infiltrative change. Nonobstructive bowel pattern. Postoperative changes right inguinal region unaltered from the prior study. The rectal findings diffusely described are improved. No evidence for drainable abscess or collection. IMPRESSION: 1. 4 mm obstructing calculus right ureteropelvic junction. 2. Moderate right renal perinephric infiltrative change and hydronephrosis. 3. Study is otherwise unremarkable with improved prior rectal and low pelvic change described previously. ACT 112: Negative or not required by law. The above report was generated using voice recognition software. It may contain grammatical, syntax or spelling errors. Electronically signed by: Chato Avitia M.D. 08/01/2019 9:15 AM Blood Pressure Blood Pressure Findings: Elevated blood pressure Blood Pressure Disposition: Referred to patients primary care provider MDM Narrative The patient is a 73-year-old male who presented to the emergency department for an evaluation of right side pain. The patient had right upper quadrant abdominal pain but also some right flank pain. The patient recently had surgery on his rectal region. He was unsure if this was the cause of his symptoms but he has no worsening discharge or pain in this area. I discussed the patient's laboratory and radiographic studies with him. He was treated with IV fluids and pain medication. He was also started on IV antibiotics. Ultimately the patient was found to have a very proximal ureteral calculus with some degree of hyd ronephrosis as well as possible forniceal rupture. We discussed this case with the on-call urologist as well as [facility] hospitalist group. They have agreed to evaluate the patient in the emergency department for further management disposition. The patient was reevaluated multiple times. His creatinine was elevated compared to baseline. This is likely secondary to the obstruction. Impression & Plan Renal colic on right side, Hydronephrosis, Right flank pain, Acute kidney injury Discharge Plan Visit Data *Final* Discharge Date/Time: 08/01/19 11:47 Chief Complaint: Flank Pain Stated Complaint: PAIN ON THE RIGHT SIDE ED Provider: Jas Malagon ED Midlevel Provider: Jacob Moran Discharge Problem: Renal colic on right side, Hydronephrosis, Right flank pain, Acute kidney injury Patient Disposition: Admitted As Inpatient Discharge Instructions Interventions: ED Discharge Assessment Last Done: 08/01/19 11:47 Discharge Problem: Hydronephrosis Qualifiers: Hydronephrosis type: unspecified Qualified Code(s): N13.30 - Unspecified hydronephrosis The scribe's documentation has been prepared under my direction and personally reviewed by me in its entirety. I confirm that the note above accurately reflects all work, treatment, procedures, and medical decision making performed by me.
[2019-08-01] MEDS ORDERED: IOVERSOL 100ml IV PRN (08:42)
[2019-08-01] MEDS ORDERED: fentaNYL citrate 100 MCG/2 ML VIAL IV STA (08:52)
[2019-08-01] MEDS ORDERED: cefTRIAXone SODIUM 2,000 MG/70 ML BAG IV STA (08:53)
[2019-08-01] MEDS ORDERED: ONDANSETRON 4 MG OD TAB PO STA (08:53)
--- NOTE | 2019-08-01 09:01 | Emergency Department Note ---
ED Visit Note I saw this patient in conjunction with Dr. Malagon, and agree with the impression and assessment as outlined in his documentation. For all pertinent details and findings regarding this patient's care please see his documentation.. Resident Activity Tracking Resident Involvement: Resident Care Provided Care Provided: Adult ED : Hydronephrosis Qualifiers: Hydronephrosis type: unspecified Qualified Code(s): N13.30 - Unspecified hydronephrosis
[2019-08-01 09:14] LABS: Appearance Urine Cloudy (Clear); Bacteria Urine Automated Negative (Negative); Bilirubin Urine Negative (Negative); Blood Urine 1+ (Negative); Cast Urine Automated 0 /lpf (0-5); Color Urine Yellow; Epithelial Cell Urine Auto 0-5 /lpf (0-5); Glucose Urine UA Negative (Negative); Ketones Urine Negative (Negative); Leukocyte Esterase Urine Negative (Negative); Nitrite Urine Negative (Negative); Protein Urine Negative (Negative); RBC Urine Automated 0-4 /hpf (0-4); Specific Gravity Urine 1.017 (1.000-1.030); Urobilinogen Urine Negative (Negative); WBC Urine Automated 0 /hpf (0-5); pH Urine 7.5 (4.5-7.5)
[2019-08-01] MEDS ORDERED: SODIUM CHLORIDE 0.9% 1000ML 1,000 ML IV SCH (09:15)
--- NOTE | 2019-08-01 09:17 | CT Scan Report ---
CT abd pelvis IV con only CT DOSE: 653.99 mGy.cm HISTORY: Pain pain abdominal pain after surgery TECHNIQUE: Multiaxial CT images of the abdomen and pelvis were performed following the use of intrave nous contrast. A dose lowering technique was utilized adhering to the principles of ALARA. COMPARISON STUDY: 03/05/2019 FINDINGS: Lung bases are clear. Several small hepatic cysts. Gallbladder is negative for distention. Left kidney is normal. Right kidney shows moderate hydronephrosis. There is a 4 mm obstructing calculus right ureteral pelvi c junction. Moderate right perinephric infiltrative change. Findings of mild right periureteral infiltrative change. Nonobstructive bowel pattern. Postoperative changes right inguinal region unaltered from the prior st udy. The rectal findings diffusely described are improved. No evidence for drainable abscess or collection . IMPRESSION: 1. 4 mm obstructing calculus right ureteropelvic junction. 2. Moderate right renal perinephric infiltrative change and hydronephrosis. 3. Study is otherwise unremarkable with improved prior rectal and low pelvic change described previou sly. ACT 112: Negative or not required by law. The above report was generated using voice recognition software. It may contain grammatical, syntax or spelling errors. Electronically signed by: Chato Avitia M.D. 08/01/2019 9:15 AM
--- NOTE | 2019-08-01 10:59 | History & Physical Report ---
Date of Service August 01, 2019 Assessment & Plan (1) Renal colic on right side: Admit to PCU on telemetry Vital signs every 4 hours Strain every urine Continue IV fluid hydration Placed consult for urology Pain management Antinausea management DVT prophylaxis SCDs and teds Full code Present on Admission?: Yes (2) Hydronephrosis: As the above (3) Right flank pain: As the above Present on Admission?: Yes (4) Hyperlipidemia: Lipid panel pending Continue simvastatin 20 mg p.o. every afternoon Present on Admission?: Yes (5) Constipation, acute: Patient states that he is constipated and did not have bowel movement since operation. Recommended to start MiraLAX twice a day as tolerated. Present on Admission?: Yes (6) Elevated PSA: Would consider discussing issue with urology tomorrow. Present on Admission?: Yes History of Present Illness Chief Complaint: Right flank pain Primary Care Provider: Chase Newell MD The patient is a 73 years old male with past medical history of hyperlipidemia and hypothyroidism who presents to the emergency room with a complaint of constant and dull right-sided flank pain that started 4 days ago. Patient states that he was prescribed 5 mg of oxycodone for the pain pain did not go away. Patient said that he had an anal fistulotomy 8 days ago. Patient reports that he also suffers from constipation since anal fistulotomy. Eyes fever, chills, chest pain, shortness of breath, frequency, urgency. Observe reviewed: WBCs 8.44 hemoglobin 16.1 hematocrit 45.5,sodium 139, p otassium 4.4 chloride 105, BUN 15, creatinine 1.86, GFR 34.6, hemoglobin A1c 5.3, prostate-specific antigen 8.57. Urine is cloudy with 1+ blood, leukocyte Estrace negative and urine nitrate negative. Bacteria negative. CT abdomen and pelvis shows 4 mm obstructing calculus right ureteropelvic junction. Moderate right renal perinephritic infiltrate changes and hydronephrosis. Decision was made to admit patient for urolithiasis and acute kidney injury and further management Allergies Allergy/AdvReac Type Severity Reaction Status Date / Time No Known Allergies Allergy Verified 08/01/19 08:48 Home Medications Home Medications Medication Instructions Recorded Confirmed Type simvastatin 20 mg tablet 20 mg PO QPM #90 tab 06/12/19 08/01/19 Rx levothyroxine 125 mcg PO QAM 08/01/19 08/01/19 History oxycodone 5 mg PO Q4H PRN 08/01/19 08/01/19 History Past Med/Surg History Medical History Abscess of anal and rectal regions Hyperlipemia Thumb injury Surgical History History of hernia surgery History of hernia surgery Family History Father Stroke Hypertension Social History Preferred Language: Turkish Communication Ability: Effective Construction Rep Required: No Beliefs That Will Affect Care: Jain Jain Beliefs: Muslim marital status: Current Living Situation: Spouse current occupational status: retired Other Information That Helps Us Care for You: No Feels Safe at Home: No Is there a partner from a previous relationship who is making you feel unsafe now?: No Any Concerns about Your Family Situation: No Would You Like to Speak to Someone About Your Situation: No Safety Concerns: Feels Safe At This Time Smoking Status: Former smoker Do You Dip or Chew Tobacco: No ; Smoking End Date: 20 years ago. ; Second Hand Exposure: No ; Tobacco Cessation Education Requested by Patient: No Hx Alcohol Use: Yes Alcohol type: beer and wine Hx Substance Use: No Review of Systems Review of Systems: All systems reviewed & are unremarkable except as noted in HPI & below Physical Exam Constitutional: WD/WN, vitals as above well developed and + obese Eyes: PERRL, conjunctivae normal, anicteric sclerae ENMT: external ear and nose normal, oropharynx normal Neck: trachea midline, no thyromegaly Respiratory: normal respiratory effort, lungs clear to auscultation Cardiovascular: RRR, no murmur, no edema Gastrointestinal (Abdomen): normal bowel sounds, soft, nontender, no hepatosplenomegaly right flank pain on percussion Musculoskeletal: no cyanosis or clubbing, extremities motor strength 5/5 Skin: no rashes, warm and dry Neurologic: patellar DTR's 2+ bilat, sensation intact Psychiatric: A+Ox3, euthymic affect Genitourinary: + CVA tenderness (on the right) Lymphatic: no cervical or axillary lymphadenopathy Results & Data Vital Signs (Past 12 Hours) Vital Signs Temp Pulse Pulse Resp BP BP Pulse Ox 08/01/19 09:40 71 18 169/90 H 97 08/01/19 08:42 73 18 183/115 H 96 08/01/19 08:09 95 08/01/19 08:08 74 16 160/92 H 95 08/01/19 07:29 36.5 C 85 16 164/84 H 96 Code Status & VTE Plan Code Status Full code VTE Prophylaxis Plan VTE Prophylaxis will be ordered: Yes PG Care Time/CCT Total # of Minutes Spent Total Time Spent with Patient: Total time spent is greater than 50% in coordination of care (as documented) at patient's floor/unit and/or counseling patient: Coding Level of Care Code 76611 Initial Inpt Care Lvl 3 Diagnoses Renal colic on right side N23 Hydronephrosis N13.30 Hydronephrosis type: unspecified Right flank pain R10.9 Hyperlipidemia E78.5 Constipation, acute K59.00 Elevated PSA R97.20 (1) Hydronephrosis Hydronephrosis type: unspecified Qualified Code(s): N13.30 - Unspecified hydronephrosis
[2019-08-01 11:36] LABS: Prostate Specific Antigen 8.57 ng/ml (0-4)
[2019-08-01 11:51] LABS: Estimated Average Glucose 105 mg/dl; Hemoglobin A1C 5.3 % (4.5-5.6)
[2019-08-01] MEDS ORDERED: MoRPHine SULFATE 2 MG/ML CARP IV PRN (12:07)
[2019-08-01] MEDS ORDERED: MAGNESIUM HYDROXIDE SUSP 30 ML UDC PO PRN (12:07)
[2019-08-01] MEDS ORDERED: ALUMINUM/MAGNESIUM SUSP 30 ML UDC PO PRN (12:07)
[2019-08-01] MEDS ORDERED: ONDANSETRON INJ 2 MG/ML 2 ML VIAL IV PRN (12:07)
[2019-08-01] MEDS ORDERED: PROMETHAZINE HCL 25 MG in SODIUM CHLORIDE 0.9% 50 ML IV PRN (12:07)
[2019-08-01] MEDS ORDERED: ACETAMINOPHEN 325 MG TAB PO PRN (12:07)
[2019-08-01] MEDS ORDERED: OXYCODONE HCL IR 5 MG TAB (IMMEDIATE RELEASE) PO PRN (12:57)
[2019-08-01] MEDS: SODIUM CHLORIDE 0.9% 1000ML 1,000 ML IV SCH ×2 (13:16→22:57)
[2019-08-01] MEDS: POLYETHYLENE (MIRALAX) 17 GM PACK PO SCH ×2 (13:25→21:08)
[2019-08-01] MEDS ORDERED: SIMVASTATIN 20 MG TAB PO SCH (21:00)
[2019-08-02] MEDS ORDERED: LEVOTHYROXINE SODIUM 125 MCG TABLET PO SCH (06:30)
--- NOTE | 2019-08-02 06:37 | Electrocardiogram Report ---
Test Reason : Blood Pressure : / mmHG Vent. Rate : 083 BPM Atrial Rate : 083 BPM P-R Int : 222 ms QRS Dur : 094 ms QT Int : 380 ms P-R-T Axes : 062 068 054 degrees QTc Int : 446 ms Sinus rhythm with 1st degree A-V block Otherwise normal ECG When compared with ECG of 21-JUN-2017 10:57, No significant change was found Confirmed by Jeff Gay ([id number]) on 08/02/2019 6:37:21 AM Referred By: REFERRED SELF Confirmed By:Jeff Gay
[2019-08-02 08:28] LABS: Basophils # (auto) 0.01 K/uL (0-0.2); Basophils % (auto) 0.2 %; Eosinophils # (auto) 0.08 K/uL (0-0.5); Eosinophils % (auto) 1.2 %; Hematocrit (blood only) 43.3 % (42-52); Hemoglobin 14.8 g/dL (14.0-18.0); Immature Granulocytes # (auto) 0.01 K/uL (0.00-0.02); Immature Granulocytes % (auto) 0.2 %; Lymphocytes # (auto) 1.15 K/uL (1.2-3.4); Lymphocytes % (auto) 17.8 %; Mean Corpuscular Hemoglobin 31.4 pg (25-34); Mean Corpuscular Hgb Conc 34.2 g/dL (32-36); Mean Corpuscular Volume 91.7 fL (80-100); Mean Platelet Volume 9.9 fL (7.4-10.4); Monocytes # (auto) 0.81 K/uL (0.11-0.59); Monocytes % (auto) 12.5 %; Neutrophils # (auto) 4.41 K/uL (1.4-6.5); Neutrophils % (auto) 68.1 %; Platelet Count 197 K/uL (130-400); RDW Coefficient of Variation 12.9 % (11.5-14.5); RDW Standard Deviation 43.4 fL (36.4-46.3); Red Blood Count 4.72 M/uL (4.7-6.1); White Blood Count 6.47 K/uL (4.8-10.8)
[2019-08-02] MEDS: POLYETHYLENE (MIRALAX) 17 GM PACK PO SCH (08:40)
[2019-08-02] MEDS: SODIUM CHLORIDE 0.9% 1000ML 1,000 ML IV SCH (08:41)
--- NOTE | 2019-08-02 09:05 | XRay Report ---
[facility] CLINICAL HISTORY: Nephrolithiasis. Right ureteral stone. FINDINGS: 2 AP supine abdominal radiographs are correlated with abdominal CT dated 08/01/2019. There i s a nonobstructed abdominal bowel gas pattern. Surgical clips project over the right lower quadrant. A 5 mm calculus is again seen projecting over the right proximal ureter just below the transverse pro cess of L3. No additional calcifications are seen projecting over either kidney. Numerous phleboliths are seen in the pelvis. The skeletal structures are osteopenic and appear intact. Lumbosacral spondy losis is noted. IMPRESSION: A 5 mm calculus is again seen projecting over the right proximal ureter. Electronically signed by: Farzad Peña M.D. 08/02/2019 9:03 AM
[2019-08-02 09:06] LABS: Albumin Level 3.2 gm/dl (3.4-5.0); BUN Creatinine Ratio 9.5 (10-20); Calcium 8.6 mg/dl (8.5-10.1); Creatinine Clr Calc Pharmacy 56.4 ml/min; Est GFR (African American) 61.3; Est GFR (Non-African American) 52.9; Potassium 4.4 mmol/L (3.5-5.1)
[2019-08-02 09:12] LABS: Bilirubin,Total 0.4 mg/dl (0.2-1); Globulin 3.3 gm/dl (2.5-4.0); Total Protein 6.5 gm/dl (6.4-8.2)
--- NOTE | 2019-08-02 10:40 | Urology Consultation ---
Date of Consultation August 02, 2019 Assessment & Plan (1) Acute kidney injury: (2) Renal colic on right side: A/P 73 yo male with radio-opaque proximal 5 mm right ureteral stone. Options reviewed with patient and . These include a trial of passage with medications, endoscopic management acutely with stent or as an outpatient with ureteroscopy or ESWL. After discussion of risks and benefits, and seen his improved Cr with fluids and improved symptoms, he would prefer to try to proceed with right ESWL semi-electively at the next available date. Worrisome signs and symptoms including recurrent colic or symptoms or worsening renal function are reviewed which might cause a need for readmission and stenting. Will provide a PO diet and initiate arrangements for outpatient ESWL. Patient should be stable for DC home this PM if his symptoms remain controlled and he tolerates his diet well. Thank you for allowing us to participate in this patient's acute care. Please recall our service as needed with any questions or concerns. (3) Right flank pain: (4) Hydronephrosis: (5) Elevated PSA: (6) BPH w urinary obs/LUTS: History of Present Illness Reason for Consultation: R 5 mm proximal ureteral stone, colic, renal insufficiency. Attending Physician: Manjinder Workman MD History of Present Illness 73 yo male, known to our service, followed by Dr. Yee for an elevated PSA, last seen in Jun 2019, admitted acutely yesterday for several days of worsening flank pain and nausea. Patient has recently undergone a repeat anal fistulotomy at [facility] and also notes a history of a past hernia repair, originally suspected a relation of his flank pain to his postop course. present in room, inpatient and outpatient notes and imaging reviewed. CT done on admission shows a 5 mm R proximal ureteral stone, visible on KUB done this AM. Images are personally reviewed. Cr at presentation was 1.8, down to 1.3 today with IVF, still above baseline of 0.8. Urology consultation requested to assist with his care. He reports his pain is much improved since admission, fewer GI complaints as well. Allergies Allergy/AdvReac Type Severity Reaction Status Date / Time No Known Allergies Allergy Verified 08/01/19 08:48 Home Medications Home Medications Medication Instructions Recorded Confirmed Type simvastatin 20 mg tablet 20 mg PO QPM #90 tab 06/12/19 08/01/19 Rx levothyroxine 125 mcg PO QAM 08/01/19 08/01/19 History oxycodone 5 mg PO Q4H PRN 08/01/19 08/01/19 History Patient History Medical History (Updated 08/02/19 @ 11:25 by Ras Workman MD) Abscess of anal and rectal regions Hyperlipemia Right ureteral stone Thumb injury Surgical History History of hernia surgery History of hernia surgery Family History Father Stroke Hypertension Social History Preferred Language: Belgian Communication Ability: Effective Home Designer Required: No Beliefs That Will Affect Care: Congregational Congregational Beliefs: Zoroastrianism marital status: Current Living Situation: Spouse current occupational status: retired Other Information That Helps Us Care for You: No Feels Safe at Home: No Is there a partner from a previous relationship who is making you feel unsafe now?: No Any Concerns about Your Family Situation: No Would You Like to Speak to Someone About Your Situation: No Safety Concerns: Feels Safe At This Time Smoking Status: Former smoker Do You Dip or Chew Tobacco: No ; Smoking End Date: 20 years ago. ; Second Hand Exposure: No ; Tobacco Cessation Education Requested by Patient: No Hx Alcohol Use: Yes Alcohol type: beer and wine Hx Substance Use: No Review of Systems Constitutional: no fever and no chills Eyes: no diplopia Ear, Nose, Mouth, Throat: no ear trauma Respiratory: no hemoptysis Cardiovascular: no chest pain Gastrointestinal: + abdominal pain (Improved); no vomiting Genitourinary: no hematuria Musculoskeletal: + back pain Integumentary: no acne and no boil Neurologic: no paralysis Psychiatric: no hopelessness Hematologic / Lymphatic: no lymphadenopathy Allergy / Immunological: no tongue swelling Physical Exam Constitutional: well developed and well nourished; no acute distress Eyes: eyes not dysmorphic ENMT: Ears: no external ear abnormality Neck: trachea midline; no anterior neck swelling Respiratory: no respiratory distress and does not use accessory muscles Cardiovascular: Vessels: radial pulses present Gastrointestinal (Abdomen): Inspection/Auscultation: abdomen not distended Percussion/Palpation: abdomen soft Musculoskeletal: Head/Neck/Chest: normocephalic and neck supple Skin: normal turgor Neurologic: awake; not obtunded Psychiatric: Orientation: oriented x 3 Lymphatic: no lymphadenopathy Results & Data Vital Signs (Past 12 Hours) Vital Signs Temp Pulse Resp BP Pulse Ox 08/02/19 07:46 36.8 C 72 18 128/76 94 08/02/19 04:45 36.6 C 67 20 133/81 96 Laboratory Results Laboratory Results - last 48 hr 08/01/19 08/01/19 08/01/19 08:00 08:00 08:00 WBC 8.44 RBC 5.04 Hgb 16.1 Hct 45.5 MCV 90.3 MCH 31.9 MCHC 35.4 RDW Std Deviation 42.1 RDW Coeff of [place] 12.8 Plt Count 230 MPV 9.5 Immature Gran % (Auto) 0.2 Neut % (Auto) 75.0 Lymph % (Auto) 13.4 [place] % (Auto) 10.8 Eos % (Auto) 0.5 Baso % (Auto) 0.1 Immature Gran # (Auto) 0.02 Neut # (Auto) 6.33 Lymph # (Auto) 1.13 L [place] # (Auto) 0.91 H Eos # (Auto) 0.04 Baso # (Auto) 0.01 Sodium 139 Potassium 4.4 Chloride 105 Carbon Dioxide 28 Anion Gap 6.0 BUN 15 Creatinine 1.86 H Est Cr Clr Drug Dosing 39.8 Est GFR ( Amer) 40.1 Est GFR (Non-Af Amer) 34.6 BUN/Creatinine Ratio 7.9 L Glucose 109 H Estimat Average Glucose 105 Hemoglobin A1c 5.3 Calcium 9.1 Total Bilirubin 0.5 AST 11 L ALT 22 Alkaline Phosphatase 94 NT-Pro-B Natriuret Pep Total Protein 7.4 Albumin 3.8 Globulin 3.6 Albumin/Globulin Ratio 1.0 Triglycerides Cholesterol LDL Cholesterol, Calc VLDL Cholesterol, Calc HDL Cholesterol Cholesterol/HDL Ratio Lipase 110 Prostate Specific Ag Urine Color Urine Appearance Urine pH Ur Specific [place] Urine Protein Urine Glucose (UA) Urine Ketones Urine Blood Urine Nitrite Urine Bilirubin Urine Urobilinogen Ur Leukocyte Esterase Urine WBC (Auto) Urine RBC (Auto) U Hyaline Cast (Auto) U Epithel Cells (Auto) Urine Bacteria (Auto) 08/01/19 08/01/19 08/02/19 08:00 09:00 07:49 WBC 6.47 RBC 4.72 Hgb 14.8 Hct 43.3 MCV 91.7 MCH 31.4 MCHC 34.2 RDW Std Deviation 43.4 RDW Coeff of [place] 12.9 Plt Count 197 MPV 9.9 Immature Gran % (Auto) 0.2 Neut % (Auto) 68.1 Lymph % (Auto) 17.8 [place] % (Auto) 12.5 Eos % (Auto) 1.2 Baso % (Auto) 0.2 Immature Gran # (Auto) 0.01 Neut # (Auto) 4.41 Lymph # (Auto) 1.15 L [place] # (Auto) 0.81 H Eos # (Auto) 0.08 Baso # (Auto) 0.01 Sodium Potassium Chloride Carbon Dioxide Anion Gap BUN Creatinine Est Cr Clr Drug Dosing Est GFR ( Amer) Est GFR (Non-Af Amer) BUN/Creatinine Ratio Glucose Estimat Average Glucose Hemoglobin A1c Calcium Total Bilirubin AST ALT Alkaline Phosphatase NT-Pro-B Natriuret Pep 89 Total Protein Albumin Globulin Albumin/Globulin Ratio Triglycerides Cholesterol LDL Cholesterol, Calc VLDL Cholesterol, Calc HDL Cholesterol Cholesterol/HDL Ratio Lipase Prostate Specific Ag 8.570 H Urine Color Yellow Urine Appearance Cloudy A Urine pH 7.5 Ur Specific [place] 1.017 Urine Protein Negative Urine Glucose (UA) Negative Urine Ketones Negative Urine Blood 1+ H Urine Nitrite Negative Urine Bilirubin Negative Urine Urobilinogen Negative Ur Leukocyte Esterase Negative Urine WBC (Auto) 0 Urine RBC (Auto) 0-4 U Hyaline Cast (Auto) 0 U Epithel Cells (Auto) 0-5 Urine Bacteria (Auto) Negative 08/02/19 07:49 WBC RBC Hgb Hct MCV MCH MCHC RDW Std Deviation RDW Coeff of [place] Plt Count MPV Immature Gran % (Auto) Neut % (Auto) Lymph % (Auto) [place] % (Auto) Eos % (Auto) Baso % (Auto) Immature Gran # (Auto) Neut # (Auto) Lymph # (Auto) [place] # (Auto) Eos # (Auto) Baso # (Auto) Sodium 142 Potassium 4.4 Chloride 110 H Carbon Dioxide 27 Anion Gap 5.0 BUN 13 Creatinine 1.31 D Est Cr Clr Drug Dosing 56.4 Est GFR ( Amer) 61.3 Est GFR (Non-Af Amer) 52.9 BUN/Creatinine Ratio 9.5 L Glucose 93 Estimat Average Glucose Hemoglobin A1c Calcium 8.6 Total Bilirubin 0.4 AST 15 ALT 18 Alkaline Phosphatase 85 NT-Pro-B Natriuret Pep Total Protein 6.5 Albumin 3.2 L Globulin 3.3 Albumin/Globulin Ratio 1.0 Triglycerides 80 Cholesterol 125 LDL Cholesterol, Calc 65 VLDL Cholesterol, Calc 16 HDL Cholesterol 44 Cholesterol/HDL Ratio 3 Lipase Prostate Specific Ag Urine Color Urine Appearance Urine pH Ur Specific [place] Urine Protein Urine Glucose (UA) Urine Ketones Urine Blood Urine Nitrite Urine Bilirubin Urine Urobilinogen Ur Leukocyte Esterase Urine WBC (Auto) Urine RBC (Auto) U Hyaline Cast (Auto) U Epithel Cells (Auto) Urine Bacteria (Auto) PG Care Time/CCT Total # of Minutes Spent Total Time Spent with Patient: Total time spent is greater than 50% in coordination of care (as documented) at patient's floor/unit and/or counseling patient: Coding Level of Care Code 05892 Initial Inpt Care Lvl 3 Diagnoses Acute kidney injury N17.9 Renal colic on right side N23 Right flank pain R10.9 Hydronephrosis N13.30 Hydronephrosis type: unspecified Elevated PSA R97.20 BPH w urinary obs/LUTS N40.1; N13.8 (1) Hydronephrosis Hydronephrosis type: unspecified Qualified Code(s): N13.30 - Unspecified hydronephrosis
--- NOTE | 2019-08-02 14:45 | Discharge Summary ---
Date of Service August 02, 2019 Admission HPI Per Admitting Provider The patient is a 73 years old male with past medical history of hyperlipidemia and hypothyroidism who presents to the emergency room with a complaint of constant and dull right-sided flank pain that started 4 days ago. Patient states that he was prescribed 5 mg of oxycodone for the pain pain did not go away. Patient said that he had an anal fistulotomy 8 days ago. Patient reports that he also suffers from constipation since anal fistulotomy. Eyes fever, chills, chest pain, shortness of breath, frequency, urgency. Observe reviewed: WBCs 8.44 hemoglobin 16.1 hematocrit 45.5,sodium 139, potassium 4.4 chloride 105, BUN 15, creatinine 1.86, GFR 34.6, hemoglobin A1c 5.3, prostate-specific antigen 8.57. Urine is cloudy with 1+ blood, leukocyte Estrace negative and urine nitrate negative. Bacteria negative. CT abdomen and pelvis shows 4 mm obstructing calculus right ureteropelvic junction. Moderate right renal perinephritic infiltrate changes and hydronephrosis. Decision was made to admit patient for urolithiasis and acute kidney injury and further management Principal Diagnosis Right kidney stone Discharge Exam Constitutional WD/WN, vitals as above Eyes EOM intact bilaterally; no conjunctival abnormality ENMT external ear and nose normal, oropharynx normal Neck trachea midline, no thyromegaly normal visual inspection Respiratory normal respiratory effort, lungs clear to auscultation no respiratory distress Cardiovascular RRR, no murmur, no edema Gastrointestinal (Abdomen) Inspection/Auscultation: abdomen normal to inspection; abdomen not distended Musculoskeletal no cyanosis or clubbing, extremities motor strength 5/5 Skin no rashes, warm and dry Neurologic moves all extremities and awake Psychiatric Orientation: alert, oriented to person and cooperative Discharge Data Allergies Allergy/AdvReac Type Severity Reaction Status Date / Time No Known Allergies Allergy Verified 08/01/19 08:48 Consultations 08/01/19 09:58 ED Decision to Admit Stat 08/01/19 12:07 Consult Urology Routine Ordered Studies 08/01/19 07:56 CT abd pelvis IV con only Stat Hospital Course (1) Renal colic on right side: Had minimal pain. Seen by urology. - Plan for outpatient lithotripsy. No abx needed as he has no infection. Discharged with small amount of pain meds and instructions to follow with Dr. Workman in the office. (2) Hydronephrosis: As the above (3) Right flank pain: As the above (4) Hyperlipidemia: Continue simvastatin 20 mg p.o. every afternoon (5) Constipation, acute: Patient states that he is constipated and did not have bowel movement since operation. Recommended to start MiraLAX twice a day as tolerated. (6) Elevated PSA: Would consider discussing issue with urology tomorrow. Total Time Total Time Spent Total Time Spent (In Minutes): 35 Discharge Plan Discharge Items Patient Disposition: Home - Self-Care Reason For Visit: RIGHT FLANK PAIN Discharge Diagnosis: Right kidney stone Activity: Resume your previous activity Non-emergency contact: Primary Care Provider and Urologist Call non-emergency contact if: your symptoms worsen, your pain is worsening and your temperature is above 101 Follow-up/Referrals: Ras Workman MD [Physician] - Chase Newell III, MD [Primary Care Provider] - Diet: Regular Addtl Attending Provider Instructions: Mr. Batista, Henri were admitted with right flank pain. Some of this pain may have been from constipation, and some was due to a right-sided kidney stone. Dr. Ras Workman saw you and felt that given your minimal pain, it was feasible to see you in the office in a few days to break up the stone. Please drink plenty of fluids and strain your urine. If you pass the stone, you can take it to Dr. Workman's office to have them analyze the stone and potentially prevent more from forming. Please take ibuprofen for any further pain. This is actually as effective as most opiate pain medications for kidney stone-related pain. I gave you a very short course of opiate pain medication, but you should only use this as an absolute last resort. If you are taking ibuprofen, oxycodone, and acetaminophen without improvement in your pain, please call Dr. Workman's office or return to the hospital. If you have fevers, chills, or a temperature > 101.0 degrees, please return to the hospital. Pending Studies at Discharge: No Stand-Alone Forms: [facility], Smoking Cessation Medications and DC Order Prescriptions: New oxycodone 5 mg Tablet 5 mg PO Q4H PRN (Reason: pain) Qty: 10 RF: 0 Continued simvastatin 20 mg tablet 20 mg PO QPM Qty: 90 RF: 3 levothyroxine 125 mcg tablet 125 mcg PO QAM RF: 0 Discontinued oxycodone 5 mg Capsule 5 mg PO Q4H PRN (Reason: Pain) RF: 0 Discharge Orders: Discharge Order (Routine); Ordered 08/02/19 Ordered By: Manjinder Workman Admission Data Admit Date/Time: 08/01/19 10:58 Attending Provider: Manjinder Workman Admit Provider: Lynnette Perrin Primary Care Provider: Chase Newell III Other Providers: Ras Workman I. ; Manjinder Workman Other Interventions: Discharge Summary Assessment (RN) Last Done: 08/02/19 13:54 DC Date/Time DO NOT enter until pt leaves facility: 08/02/19 14:43 Coding Level of Care Code D/C Day Management >30 mins Diagnoses Renal colic on right side N23 Hydronephrosis N13.30 Hydronephrosis type: unspecified Right flank pain R10.9 Hyperlipidemia E78.5 Constipation, acute K59.00 Elevated PSA R97.20
== END 2019-08-02 14:43 | disposition home or self-care (01) | DRG 694 ==
LOC: ED 07:27 → SUATTDRO 10:58 → 2N 10:58